=== PATIENT | female | born 1965 | race Caucasian/White ===

== ENCOUNTER 2019-09-19 17:57 | Emergency (ER) | payer OTHER, SELFPAY ==
--- NOTE | ~2019-09-19 | XR_ITS ---
EXAMINATION: SACRUM/COCCYX DATE: 09/19/2019 18:40 INDICATION: Low back pain after fall down 8 steps. TECHNIQUE: Three views sacrum/coccyx FINDINGS: No prior studies for comparison There is no displaced fracture of the sacrum. The coccyx demonstrates overall normal morphology with out acute angulation. IMPRESSION: 1. No acute displaced osseous abnormality of the sacrum. Suspicion for occult or nondisplaced sacral fracture can either be evaluated with CT or MRI. 2. Grossly normal morphology to the coccyx without acute angulation. However, due to the wide range of normal variation of the coccyx, acute injury would be best evaluated by clinical examination and patient's symptoms. Reviewed, dictated and finalized at location A. [employer]
--- NOTE | 2019-09-19 18:08 | ED.GENADULT ---
HPI - General Adult General Chief complaint: Back Pain/Injury Stated complaint: Fell Tailbone pain Time Seen by Provider: 09/19/19 18:21 Source: patient and RN notes reviewed Mode of arrival: ambulatory Limitations: no limitations History of Present Illness HPI narrative: Days ago on 09/17/2019 this patient tripped over a dog toy and fell down 8 steps on her buttocks hurting the tailbone area of her back. She does not hurt over the hip sockets or in the legs and arms are in the lumbar or thoracic or neck area. She did not strike her head and no loss of consciousness. She sustained no other injuries. She has not seen any bruising but it hurts over that area and she is concerned she may have fractured her tailbone. She has never had any fractures of her sacrococcygeal area in the past. She is not having numbness or tingling sensation in the perineal area or gluteal area. She has not had any numbness or tingling sensation in her face, arms, or legs. She did not receive any lacerations or abrasions. She has had no nausea, no vomiting, no diarrhea. She has had no hematuria, no dysuria, no pyuria. She has had no rashes. She has had no other symptoms. No known exposure to anyone with strep throat, mono, influenza, bronchitis, pneumonia that she is aware of. She has treated this with alternating Tylenol and Motrin without improvement. Related Data Home Medications Medication Instructions Recorded Confirmed bupropion HCl 300 mg PO DAILY 09/19/19 09/19/19 dapagliflozin-metformin [Xigduo XR] 5 - 1,000 tablet PO BID 09/19/19 09/19/19 duloxetine 30 mg PO DAILY 09/19/19 09/19/19 ferrous sulfate [Iron (ferrous 325 mg DAILY 09/19/19 09/19/19 sulfate)] flash glucose scanning reader 09/19/19 09/19/19 [FreeStyle Claire 14 Day [place]] levothyroxine 25 mcg DAILY 09/19/19 09/19/19 secukinumab [Cosentyx Pen (2 Pens)] mg SUBCUT 09/19/19 triamcinolone acetonide TOPICAL 09/19/19 Allergies Allergy/AdvReac Type Severity Reaction Status Date / Time No Known Allergies Allergy Verified 11/17/12 10:41 Review of Systems Review of Systems: Narrative: CONSTITUTIONAL: Denies fever, chills, or sweats. Noncontributory except as pertains to the past medical history and history of present illness EYES: Denies visual changes, redness, or discharge. ENT: Denies rhinorrhea, congestion, sore throat, or otalgia. CARDIOVASCULAR: Denies chest pain, palpitations, or edema. RESPIRATORY: Denies cough or dyspnea. GASTROINTESTINAL: Denies abdominal pain, nausea, vomiting, or diarrhea. GENITOURINARY: Denies dysuria or hematuria. SKIN: Denies rash or itching. MUSCULOSKELETAL: Denies back pain, joint pain, or myalgia. NEUROLOGIC: Denies headache, numbness, or weakness. PSYCHIATRIC: Denies anxiety or depression. [facility] Social History Social History Gender identity (if verbalized by the patient): Female Comments At time of signature, I have reviewed and agree with nursing past medical, surgical, social, and family history.Please see nursing chart for further information. There is no relevant family history pertinent to the presenting complaint. Exam Narrative: Exam Narrative: GENERAL: Well-appearing, well-nourished, and in no acute distress. HEAD: Normocephalic, atraumatic. EYES: PERRLA and EOMI. EARS: TM's clear bilaterally and the canals are clear NOSE: Nares clear, no rhinorrhea or epistaxis. THROAT:Mucous membranes moist.Oropharynx normal without erythema or exudates. NECK: Supple. No adenopathy of the neck, supraclavicular, axillary, or inguinal areas. RESPIRATORY: No respiratory distress. Airway patent. Respirations non-labored. Clear to auscultation. There are no wheezes, no rales, no retractions, no use accessory muscles or respirations. Patient's not cyanotic and not dyspneic. HEART: Regular rate and rhythm. No murmur heard. Normal peripheral pulses. ABDOMEN: Soft, nontender, nondistended, normal active bowel sounds.No masses. No rebound o
[2019-09-19 18:13] VITALS: BP 156/72; PULSE 95; RESP 20; TEMP 36.9; O2SAT 100
== END 2019-09-19 18:52 | disposition home or self-care (01) ==
PROVIDERS: Emergency Provider Family Medicine; PCP Internal Medicine
DX: S30.0XXA Contusion of lower back and pelvis, initial encounter (principal); W10.9XXA Fall (on) (from) unspecified stairs and steps, initial encounter
CPT/HCPCS: 72220; 99203; G0463